=== PATIENT | female | born 1970 | race Caucasian/White ===

== ENCOUNTER → 2017-04-09 | Outpatient (CLI) | payer BC ==
[2017-04-09 21:28] LABS: Follicle Stimulating Hormone 7.1 mIU/mL
== END ==
LOC: MMGSC 14:16
PROVIDERS: ATTEND Obstetrics & Gynecology
DX: Z78.0 Asymptomatic menopausal state (principal)
CPT/HCPCS: 36415; 82670; 83001; 84403

== ENCOUNTER → 2017-09-25 | Outpatient (CLI) | payer BC ==
[2017-09-25 20:59] LABS: Cholesterol 162 mg/dL (<200); HDL Cholesterol 46 mg/dL (40-60); LDL Cholesterol,Calculated 99 mg/dL (0-99); Triglycerides 83 mg/dL (<150)
== END | disposition home or self-care (01) ==
LOC: MMGSC 09:14
PROVIDERS: ATTEND Obstetrics & Gynecology
DX: Z13.220 Encounter for screening for lipoid disorders (principal); Z82.49 Family history of ischemic heart disease and other diseases of the circulatory system
CPT/HCPCS: 36415; 80061

== ENCOUNTER → 2021-09-12 | Outpatient (CLI) | payer BC ==
--- NOTE | 2021-09-12 10:41 | XR ---
EXAMINATION TYPE: XR chest 2V DATE OF EXAM: 09/12/2021 HISTORY: Shortness of breath. COMPARISON: None. TECHNIQUE: Single view of the chest is submitted. FINDINGS: Demonstrated are scattered senescent parenchymal change. There is no evidence for focal infiltrate. Left-sided MediPort catheter with distal tip overlying the SVC. No evidence for pneumothorax. The heart is stable. Hilar and mediastinal structures are within normal limits. Degenerative changes are seen of the dorsal spine. IMPRESSION: 1. Left-sided MediPort catheter with distal tip overlying the SVC. No evidence for pneumothorax.
== END | disposition home or self-care (01) ==
LOC: RADXRMAIN 10:21
PROVIDERS: ATTEND Internal Medicine Hematology & Oncology
DX: R06.02 Shortness of breath (principal); C50.411 Malignant neoplasm of upper-outer quadrant of right female breast
CPT/HCPCS: 71046

== ENCOUNTER 2024-04-15 09:44 | Day surgery (SDC) | payer BC ==
[~2024-04-15 09:44] MED LIST: LIDOCAINE 1% (10MG/ML) FOR IV START INTRADERMA PRN
[2024-04-15 10:51] VITALS: TEMP 98.5
[2024-04-15] MEDS: IV FLUID CONTINUATION 1,000 ML IV ONE ×2 (10:59→11:25)
[2024-04-15] MEDS: LACTATED RINGERS 1,000 ML IV SCH (10:59)
[2024-04-15] MEDS: ONDANSETRON 4 MG/2 ML VIAL IVP STA (11:06)
[2024-04-15] MEDS ORDERED: PROPOFOL 10 MG/ML 20 ML VIAL IV ONE (11:31)
[2024-04-15] MEDS ORDERED: LIDOCAINE 1% INJ 10MG/ML (20 ML MDV) ONE (11:31)
--- NOTE | 2024-04-15 11:43 | P.PCN ---
Date of Procedure: 04/15/24 Procedure(s) Performed: BRIEF HISTORY: Patient is a 53-year-old, pleasant, white female scheduled for an upper endoscopy for evaluation of progressive dysphagia to solids for the last 6 months duration.. She was recently diagnosed with iron deficiency anemia. Last colonoscopy 2 years ago was unremarkable. PROCEDURE PERFORMED: Esophagogastroduodenoscopy with dilation. PREOPERATIVE DIAGNOSIS: Progressive dysphagia to solids of 6 months. IV sedation per anesthesia. PROCEDURE: After informed consent was obtained, the patient was brought into the endoscopy unit. IV sedation was administered by Anesthesia under continuous monitoring. Initially the Olympus GIF-140 video endoscope was inserted into the mouth. Esophagus intubated without any difficulty. It was gradually advanced into the stomach and duodenum and carefully examined. The bulb and the second part of the duodenum appeared normal. Biopsies were done from the duodenum to evaluate for celiac disease. The scope at this time was withdrawn to the stomach, adequately insufflated with air, and upon careful examination, mucosa of the antrum, body, cardia and the fundus appeared normal. Small gastric polyps noted which were biopsied. The scope was then withdrawn into the esophagus. Moderate size hiatal hernia noted. The GE junction was located at 36 cm from the incisors. There was a distal esophageal stricture identified and this was dilated using 15 to 17 mm TTS balloon in sequential fashion for 30 seconds. Following dilation there was some oozing identified. The rest of the esophagus appeared normal. There were no erosions or ulcerations seen and the patient tolerated the procedure well. IMPRESSION: 1. Distal esophageal stricture s/p balloon dilation using 1517 mm TTS balloon in a sequential fashion for 60 seconds. 2. Moderate size hiatal hernia. 3. Small gastric polyp. RECOMMENDATIONS: The findings of this examination were discussed with the patient as well as her family. She was advised to remain on clear liquid diet for 2 hours. Follow-up with the biopsy results. Continue with omeprazole 20 mg daily and follow antireflux measures..
[2024-04-15 11:55] VITALS: RESP 16
[2024-04-15 12:05] VITALS: BP 132/78; PULSE 78
== END 2024-04-15 12:29 | disposition home or self-care (01) ==
LOC: ORWHC2ENDO 09:44
PROVIDERS: ATTEND Internal Medicine Gastroenterology
DX: K31.7 Polyp of stomach and duodenum (principal); K44.9 Diaphragmatic hernia without obstruction or gangrene; K21.9 Gastro-esophageal reflux disease without esophagitis; M19.90 Unspecified osteoarthritis, unspecified site; Z88.2 Allergy status to sulfonamides
CPT/HCPCS: 88305; 43239; 43249; J2405; J2001; J2704; C1726

== ENCOUNTER 2024-11-20 11:27 | Day surgery (SDC) | payer BC ==
[2024-11-19 10:34] VITALS: BMI 27.4
[2024-11-20] MEDS: IV FLUID CONTINUATION 1,000 ML IV ONE (12:14)
[2024-11-20 12:15] VITALS: TEMP 98
[2024-11-20] MEDS: LACTATED RINGERS 1,000 ML IV SCH (12:25)
[2024-11-20] MEDS: LIDOCAINE 1% (10MG/ML) FOR IV START INTRADERMA STA (12:25)
[2024-11-20] MEDS: ONDANSETRON 4 MG/2 ML VIAL IVP STA (12:25)
[2024-11-20] MEDS ORDERED: PROPOFOL 10 MG/ML 20 ML VIAL IV ONE (12:32)
--- NOTE | 2024-11-20 12:52 | P.PCN ---
Date of Procedure: 11/20/24 Procedure(s) Performed: BRIEF HISTORY: Patient is a 54-year-old pleasant white female scheduled for an elective colonoscopy as a part of evaluation of iron deficiency anemia. She denies any rectal bleeding. PROCEDURE PERFORMED: Colonoscopy. PREOPERATIVE DIAGNOSIS: Iron deficiency anemia. IV sedation per Anesthesia. PROCEDURE: After informed consent was obtained, the patient, was brought into the endoscopy unit. IV sedation was administered by Anesthesia under continuous monitoring. Digital rectal examination was normal. Initially the Olympus CF-160 flexible video colonoscope was then inserted in the rectum, gradually advanced into the cecum without any difficulty. Careful examination was performed as the scope was gradually being withdrawn. Ileocecal valve and the appendiceal orifice were visualized and appeared normal. Prep was excellent. Mucosa of the cecum, ascending colon, transverse colon, descending colon, sigmoid colon, and rectum appeared normal. Retroflexion was performed in the rectum and no lesions were seen. The patient tolerated the procedure well. IMPRESSION: Normal-appearing colon from rectum to cecum no evidence of colorectal neoplasia. RECOMMENDATIONS: Findings of this examination were discussed with the patient as well as her family. She was advised to have repeat screening colonoscopy in 10 years..
[2024-11-20 13:15] VITALS: BP 130/86; PULSE 92; RESP 16
== END 2024-11-20 13:34 | disposition home or self-care (01) ==
LOC: ORWHC2ENDO 11:27
PROVIDERS: ATTEND Internal Medicine Gastroenterology
DX: D50.9 Iron deficiency anemia, unspecified (principal)
CPT/HCPCS: 45378; J2405; J2704